=== PATIENT | male | born 1950 | race Caucasian/White ===

== ENCOUNTER 2020-03-13 09:48 | Observation (INO) | payer OTHER, MEDICARE ==
[~2020-03-13] VITALS: Ht 185.4 cm; Wt 101.7 kg
[2020-03-13 10:17] VITALS: BP 159/96
[2020-03-13] MEDS ORDERED: MULT-658 PO (10:23)
[2020-03-13] MEDS ORDERED: LANS30CA PO (10:23)
[2020-03-13] MEDS ORDERED: FAMO20TA7 PO (10:23)
[2020-03-13] MEDS ORDERED: PLEASE ENTER HEIGHT AND WEIGHT MC SCH (10:30)
[2020-03-13] MEDS ORDERED: VANCOMYCIN PMX 1GM/200ML 200 ML ONE (10:49)
[2020-03-13] MEDS ORDERED: MIDAZOLAM 1 MG/ML, 5ML ONE (10:49)
[2020-03-13] MEDS ORDERED: LIDOCAINE 2%, 20ML ONE (10:49)
[2020-03-13] MEDS ORDERED: FENTANYL PF 100 MCG/2ML ONE (10:49)
[2020-03-13] MEDS ORDERED: VANCOMYCIN 500 MG ONE (10:50)
[2020-03-13] MEDS ORDERED: MIDAZOLAM 1 MG/ML, 2ML ONE (12:05)
[2020-03-13] MEDS ORDERED: HYDROcodone/APAP 5/325 TABLET PO PRN (12:30)
[2020-03-13] MEDS ORDERED: Hold all anticoagulants for 24 hours MC PRN (12:30)
[2020-03-13] MEDS ORDERED: ZOLPIDEM 5MG TABLET PO PRN (12:30)
[2020-03-13] MEDS ORDERED: ACETAMINOPHEN 325 MG TABLET ONE (15:16)
[2020-03-13] MEDS ORDERED: ACETAMINOPHEN 325 MG TABLET PO PRN (15:30)
[2020-03-13] MEDS: SODIUM CHLORIDE 0.9% 1,000 ML IV SCH ×2 (16:19→16:22)
[2020-03-13 20:30] VITALS: BP 141/76
[2020-03-13] MEDS: SODIUM CHLORIDE FLUSH 10ML SYR IVF SCH (21:19)
[2020-03-14 00:28] VITALS: BP 160/86
[2020-03-14] MEDS: SODIUM CHLORIDE 0.9% 1,000 ML IV SCH ×2 (01:40→10:29)
[2020-03-14 07:13] VITALS: BP 163/84
[2020-03-14] MEDS: SODIUM CHLORIDE FLUSH 10ML SYR IVF SCH (09:22)
== END 2020-03-14 11:41 | disposition home or self-care (01) ==
LOC: CACL 09:48 → ORIP 12:17 → 5SO 15:43 → DCLOUNGE 03-14 11:20
PROVIDERS: ADMIT Internal Medicine Cardiovascular Disease; ATTEND Internal Medicine Cardiovascular Disease
DX: I44.2 Atrioventricular block, complete (principal); K21.9 Gastro-esophageal reflux disease without esophagitis; Z85.828 Personal history of other malignant neoplasm of skin; Z88.0 Allergy status to penicillin; Z79.899 Other long term (current) drug therapy
CPT/HCPCS: 33208; 71045; 93005; 99156; 99157; C1779; C1785; C1892; G0378; J2250; J3010; J3370; J3490